=== PATIENT | male | born 1985 | race Two or more races ===

== ENCOUNTER 2018-03-03 23:04 | Emergency (ER) | payer SELFPAY ==
[~2018-03-03] VITALS: Ht 177.8 cm; Wt 74.8 kg
[2018-03-03 23:04] VITALS: BP 127/78
--- NOTE | 2018-03-03 23:04 | NUR ---
PATIENT [facility] TO ER CHAIR Asmit[facility]
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
--- NOTE | 2018-03-03 23:11 | NUR ---
PATIENT MOVED TO ER CHAIR E.
--- NOTE | 2018-03-03 23:15 | NUR ---
Dr. Villela evaluating patient
[2018-03-03 23:25] VITALS: BP 119/82
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
== END 2018-03-03 23:25 ==
LOC: MED 23:04
DX: Z04.1 Encounter for examination and observation following transport accident (principal); V47.5XXA Car driver injured in collision with fixed or stationary object in traffic accident, initial encounter; Y93.89 Activity, other specified; Y92.411 Interstate highway as the place of occurrence of the external cause; Y99.8 Other external cause status
CPT/HCPCS: 99283